=== PATIENT | female | born 1965 | race Caucasian/White ===

== ENCOUNTER 2022-11-07 03:46 | Emergency (ER) | payer SELFPAY ==
[~2022-11-07] VITALS: Ht 160 cm; Wt 69.0 kg
[2022-11-07 03:48] VITALS: BP 151/97
== END 2022-11-07 04:20 | disposition left against medical advice (07) ==
LOC: ER 03:46
DX: Z53.21 Procedure and treatment not carried out due to patient leaving prior to being seen by health care provider (principal)
CPT/HCPCS: 99281